=== PATIENT | female | born 1975 | race Hispanic/Latino ===

== ENCOUNTER 2021-07-21 08:40 | Day surgery (SDC) | payer MEDICARE ==
[~2021-07-21 08:40] MED LIST: 0.9%NACL 1000ML 1,000 ML IV ONE; INSNOV SQ; INSU100V12 SQ; TRAM50TA4 PO
[2021-07-21 09:08] VITALS: BP 138/67
[2021-07-21] MEDS ORDERED: LEVO112C4 PO (09:43)
[2021-07-21] MEDS ORDERED: LABE200T5 PO (09:43)
[2021-07-21] MEDS ORDERED: ATOR40TA69 PO (09:43)
[2021-07-21] MEDS ORDERED: HYDR-4153 PO (09:43)
[2021-07-21] MEDS ORDERED: TRAN650T5 PO (09:43)
[2021-07-21] MEDS ORDERED: AMLO-257 PO (09:43)
[2021-07-21] MEDS ORDERED: AURYXIA PO (09:43)
[2021-07-21] MEDS ORDERED: PROPOFOL 10 MG/ML 20ML VIAL IV ONE ×2 (10:44→10:53)
[2021-07-21 11:05] VITALS: BP 127/55
[2021-07-21 11:36] VITALS: BP 138/61
== END 2021-07-21 11:37 | disposition home or self-care (01) ==
LOC: DAH 08:40 → ENDO 08:40
PROVIDERS: ATTEND Internal Medicine
DX: K31.7 Polyp of stomach and duodenum (principal); K29.80 Duodenitis without bleeding; I13.11 Hypertensive heart and chronic kidney disease without heart failure, with stage 5 chronic kidney disease, or end stage renal disease; E11.22 Type 2 diabetes mellitus with diabetic chronic kidney disease; N18.6 End stage renal disease; Z86.010 Personal history of colon polyps; E66.9 Obesity, unspecified; E78.00 Pure hypercholesterolemia, unspecified; E03.9 Hypothyroidism, unspecified; Z79.899 Other long term (current) drug therapy; Z20.822 Contact with and (suspected) exposure to COVID-19
CPT/HCPCS: 36415; 43239; 82948; 84132; 87635; 88305; A4215 ×4; A4221 ×2; A4222 ×2; A4223 ×2; A4606 ×2; A4620 ×2; A4663 ×2; C9803; J2704; J7030